=== PATIENT | female | born 1975 | race Caucasian/White ===

== ENCOUNTER 2021-06-07 06:17 | Inpatient (IN) ==
[2021-06-07] MEDS ORDERED: Clindamycin 900 MG/50 ML 900 MG/50 ML IV.SOLN IVPB ONE (06:33)
[2021-06-07] MEDS ORDERED: Ringers Solution, Lactated 1,000 ML IVC SCH (06:45)
[2021-06-07] MEDS ORDERED: *HR* FentaNYL (PF) 100 MCG/2 ML VIAL ONE ×3 (06:53→09:50)
[2021-06-07] MEDS ORDERED: Heparin 1,000 UNITS/500 mL 500 ML ONE (07:10)
[2021-06-07] MEDS ORDERED: *HR* Heparin 5,000 UNIT/ML VIAL ONE (07:10)
[2021-06-07] MEDS ORDERED: 0.9 % Sodium Chloride Mini Bag 200 ML ONE (07:10)
[2021-06-07] MEDS ORDERED: Lidocaine 1% 20 ML MDV ONE (07:11)
[2021-06-07] MEDS ORDERED: *HR* Norepinephrine 4 MG/4 ML VIAL IVC ONE (07:23)
[2021-06-07] MEDS ORDERED: *HR* Vasopressin 20 UNIT/ML VIAL ONE (07:24)
[2021-06-07] MEDS ORDERED: Lidocaine Jelly 6ml 1 APPL/6 ML JEL.PF.APP ONE (07:24)
[2021-06-07] MEDS ORDERED: Promethazine 6.25 MG in Water for inj. (sterile) 20 ML IVPB PRN (08:06)
[2021-06-07] MEDS ORDERED: *HR* OxyCODONE Immed Rel 5 MG TABLET PO PRN (08:06)
[2021-06-07] MEDS ORDERED: Acetaminophen IV 1,000 MG/100 ML BAG IVPB ONE (09:55)
[2021-06-07] MEDS: *HR* HYDROmorphone PF 0.5 MG/0.5 ML SYRINGE IVP PRN ×2 (10:13→10:30)
[2021-06-07] MEDS ORDERED: Prochlorperazine 10 MG/2 ML VIAL IVP PRN (11:55)
[2021-06-07] MEDS ORDERED: Naloxone 0.4 MG/ML INJ IVP PRN (11:55)
[2021-06-07] MEDS: 0.9 % Sodium Chloride 1,000 ML IVC SCH (13:05)
[2021-06-07] MEDS: *HR* HYDROcodone/Acet 5/325 mg TABLET PO PRN ×2 (13:05→20:18)
[2021-06-07] MEDS: Ipratropium/Albuterol Neb 3 ML IH SCH ×3 (15:42→20:36)
[2021-06-07] MEDS: Budesonide/Formoterol 160/4.5 1 PUFF INH IH SCH ×2 (15:42→20:36)
[2021-06-07] MEDS: *HR* Heparin 5,000 UNIT/ML VIAL SQ SCH ×2 (16:19→20:14)
[2021-06-07] MEDS: Gabapentin 300 MG CAPSULE PO SCH ×3 (16:19→20:14)
[2021-06-07] MEDS: Famotidine 20 MG TABLET PO SCH (20:14)
[2021-06-07] MEDS: Sennosides/Docusate Sodium TABLET PO SCH (20:14)
[2021-06-08] MEDS: Ipratropium/Albuterol Neb 3 ML IH SCH ×5 (00:42→15:44)
[2021-06-08 01:31] LABS: Hematocrit 41.2 % (35.3-44.9); Hemoglobin 12.5 g/dL (11.5-15.4); Mean Corpuscular HGB Conc 30.3 g/dL (31.6-35.5); Mean Corpuscular Hemoglobin 27.2 pg (28.0-33.3); Mean Corpuscular Volume 89.6 fL (83.0-100.0); Mean Platelet Volume 11.5 fL (9.4-12.4); Platelet Count 231 K/mcL (140-400); Red Cell Distribution Width 14.9 % (11.5-14.5); White Blood Count 14.2 K/mcL (4.3-11.1)
[2021-06-08 01:47] LABS: BUN/Creatinine Ratio 19 (6-26); Blood Urea Nitrogen 8 mg/dL (6-20); Calcium 9.8 mg/dL (8.6-10.3); Carbon Dioxide 21 mEq/L (23-29); Chloride 110 mEq/L (98-107); Glucose 124 mg/dL (70-105); Magnesium 1.8 mg/dL (1.6-2.6); Osmolality,Calculated 284 (280-300); Potassium 4.2 mEq/L (3.5-5.1); Sodium 137 mEq/L (136-145); eGFR For African Americans > 60 (> 60); eGFR For Non-African Americans > 60 (> 60)
[2021-06-08] MEDS: *HR* HYDROcodone/Acet 5/325 mg TABLET PO PRN ×3 (02:05→11:44)
[2021-06-08] MEDS: 0.9 % Sodium Chloride 1,000 ML IVC SCH (02:48)
[2021-06-08] MEDS: *HR* Heparin 5,000 UNIT/ML VIAL SQ SCH ×2 (06:32→12:00)
[2021-06-08 07:13] VITALS: BP 139/71; TEMP 98.1
[2021-06-08] MEDS: Budesonide/Formoterol 160/4.5 1 PUFF INH IH SCH (07:24)
[2021-06-08] MEDS: Famotidine 20 MG TABLET PO SCH (07:45)
[2021-06-08] MEDS: Gabapentin 300 MG CAPSULE PO SCH (07:45)
[2021-06-08] MEDS: Sennosides/Docusate Sodium TABLET PO SCH (07:47)
[2021-06-08] MEDS ORDERED: Patient Taking Own Medication 1 EACH PO SCH (09:00)
[2021-06-08] MEDS ORDERED: Fluticasone Propionate Nasal 50 MCG/SPRAY BOTTLE NS SCH (09:00)
[2021-06-08] MEDS ORDERED: Loratadine 10 MG TABLET PO SCH (09:00)
[2021-06-08 10:29] VITALS: PULSE 104
[2021-06-08 11:14] VITALS: O2SAT 94
== END 2021-06-08 15:49 | disposition home health service (06) | DRG 821 ==
LOC: SAMDAY 06:17 → 2NNU 12:59
PROVIDERS: ADMIT Thoracic Surgery (Cardiothoracic Vascular Surgery); ATTEND Thoracic Surgery (Cardiothoracic Vascular Surgery)

== ENCOUNTER 2021-06-12 05:13 | Observation (INO) ==
[2021-06-12] MEDS ORDERED: Melatonin 3 MG TABLET PO PRN (09:07)
[2021-06-12] MEDS ORDERED: Acetaminophen 325 MG TABLET PO PRN (09:07)
[2021-06-12] MEDS ORDERED: Ondansetron 4 MG/2 ML VIAL IVP PRN (09:07)
[2021-06-12] MEDS ORDERED: Naloxone 0.4 MG/ML INJ IVP PRN (09:07)
[2021-06-12 13:58] LABS: Hematocrit 38.2 % (35.3-44.9); Hemoglobin 12.2 g/dL (11.5-15.4); Mean Corpuscular HGB Conc 31.9 g/dL (31.6-35.5); Mean Corpuscular Hemoglobin 28.3 pg (28.0-33.3); Mean Corpuscular Volume 88.6 fL (83.0-100.0); Mean Platelet Volume 11.5 fL (9.4-12.4); Platelet Count 240 K/mcL (140-400); Red Blood Count 4.31 M/mcL (3.82-4.97); Red Cell Distribution Width 15.1 % (11.5-14.5); White Blood Count 10.8 K/mcL (4.3-11.1)
[2021-06-12 14:02] LABS: Adenovirus Not Detected (Not Detect); Bordetella Pertussis Not Detected (Not Detect); Chlamydophila pneumoniae Not Detected (Not Detect); Coronavirus 229E Not Detected (Not Detect); Coronavirus HKU1 Not Detected (Not Detect); Coronavirus NL63 Not Detected (Not Detect); Coronavirus OC43 Not Detected (Not Detect); Human Metapneumovirus Not Detected (Not Detect); Human Rhinovirus/Enterovirus Not Detected (Not Detect); Influenza A Subtype 2009 H1 Not Detected (Not Detect); Influenza B Not Detected (Not Detect); Mycoplasma pneumoniae Not Detected (Not Detect); Parainfluenza Virus 1 Not Detected (Not Detect); Parainfluenza Virus 2 Not Detected (Not Detect); Parainfluenza Virus 3 Not Detected (Not Detect); Parainfluenza Virus 4 Not Detected (Not Detect); Respiratory Syncytial Virus Not Detected (Not Detect); SARS-CoV-2 Not Detected (Not Detect)
[2021-06-12 14:14] LABS: BUN/Creatinine Ratio 25 (6-26); Blood Urea Nitrogen 12 mg/dL (6-20); Calcium 9.8 mg/dL (8.6-10.3); Carbon Dioxide 25 mEq/L (23-29); Chloride 106 mEq/L (98-107); Glucose 134 mg/dL (70-105); Osmolality,Calculated 284 (280-300); Potassium 4.2 mEq/L (3.5-5.1); Sodium 136 mEq/L (136-145); eGFR For African Americans > 60 (> 60); eGFR For Non-African Americans > 60 (> 60)
[2021-06-12 18:35] VITALS: BP 119/75; PULSE 88; TEMP 97.5; O2SAT 93
== END 2021-06-12 19:44 | disposition left against medical advice (07) ==
LOC: 2ANU
PROVIDERS: ADMIT Internal Medicine; ATTEND Internal Medicine

== ENCOUNTER 2021-06-28 17:24 | Inpatient (IN) ==
[2021-06-29] MEDS ORDERED: Perflutren Lipid Microsphere 1.3 ML in 0.9 % Sodium Chloride 8.7 ML IVP PRN (01:38)
[2021-06-29] MEDS ORDERED: Naloxone 0.4 MG/ML INJ IVP PRN (01:46)
[2021-06-29] MEDS ORDERED: Acetaminophen 325 MG TABLET PO PRN (01:46)
[2021-06-29 01:47] LABS: Basophils # 0.1 K/mcL (0.0-0.2); Basophils % 0.5 %; Eosinophils # 0.4 K/mcL (0.0-0.6); Eosinophils % 3.5 %; Hematocrit 39.5 % (35.3-44.9); Hemoglobin 12.4 g/dL (11.5-15.4); Immature Granulocytes % 0.3 % (0-4); Lymphocytes # 2.5 K/mcL (0.6-4.6); Lymphocytes % 23.8 %; Mean Corpuscular HGB Conc 31.4 g/dL (31.6-35.5); Mean Corpuscular Hemoglobin 27.7 pg (28.0-33.3); Mean Corpuscular Volume 88.2 fL (83.0-100.0); Mean Platelet Volume 10.6 fL (9.4-12.4); Monocytes # 0.8 K/mcL (0.0-1.3); Monocytes % 7.4 %; Neutrophils # 6.7 K/mcL (1.6-8.9); Platelet Count 259 K/mcL (140-400); Red Blood Count 4.48 M/mcL (3.82-4.97); Red Cell Distribution Width 14.9 % (11.5-14.5); Segmented Neutrophils % 64.5 %; White Blood Count 10.4 K/mcL (4.3-11.1)
[2021-06-29] MEDS ORDERED: Prochlorperazine 10 MG/2 ML VIAL IVP PRN (01:51)
[2021-06-29 02:11] LABS: Alanine Aminotransferase 23 Units/L (7-52); Albumin 3.5 g/dL (3.5-5.7); Albumin/Globulin Ratio 1.4 (1.1-2.2); Alkaline Phosphatase 105 Units/L (34-104); Aspartate Amino Transferase 16 Units/L (13-39); BUN/Creatinine Ratio 14 (6-26); Bilirubin,Total 0.5 mg/dL (0.3-1.0); Blood Urea Nitrogen 7 mg/dL (6-20); Calcium 10.1 mg/dL (8.6-10.3); Carbon Dioxide 24 mEq/L (23-29); Chloride 109 mEq/L (98-107); Chol/HDL Ratio 4.6 (0-4.9); Cholesterol 142 mg/dL (< 200); Globulin 2.5 g/dL (2.4-3.5); Glucose 92 mg/dL (70-105); HDL Cholesterol 31 mg/dL (40-59); Iron 30 mcg/dL (50-170); LDL Cholesterol,Calculated 87 mg/dL (< 100); Magnesium 1.9 mg/dL (1.6-2.6); Osmolality,Calculated 284 (280-300); Potassium 3.9 mEq/L (3.5-5.1); Sodium 138 mEq/L (136-145); Triglycerides 120 mg/dL (< 150); eGFR For African Americans > 60 (> 60); eGFR For Non-African Americans > 60 (> 60)
[2021-06-29 02:20] LABS: Thyroid Stimulating Hormone 0.438 mcIU/mL (0.340-5.600)
[2021-06-29 02:25] LABS: Ferritin 16 ng/mL (10-120)
[2021-06-29] MEDS ORDERED: Nitroglycerin 0.4 MG TAB.SUBL SL PRN (02:54)
[2021-06-29] MEDS: *HR* HYDROmorphone 2 MG TABLET PO PRN ×3 (02:57→21:16)
[2021-06-29] MEDS ORDERED: Albuterol 2.5 MG/3 ML NEBULIZER IH PRN (03:19)
[2021-06-29] MEDS ORDERED: NON-FORMULARY MEDICATION 1 EACH EACH (Albuterol Sulfate 8.5 GM Hfa.Aer.Ad) IH PRN (03:19)
[2021-06-29] MEDS: Levalbuterol Neb 1.25 MG/3 ML IH SCH ×7 (03:26→23:08)
[2021-06-29 03:29] LABS: Folate > 22.3 ng/mL (3.0-16.0); Vitamin D 25 Hydroxy 13 ng/mL (30-80)
[2021-06-29] MEDS: *HR* Heparin 5,000 UNIT/ML VIAL SQ SCH ×3 (05:39→21:16)
[2021-06-29] MEDS: *HR* HYDROcodone/Acet 5/325 mg TABLET PO PRN ×2 (06:11→16:49)
[2021-06-29] MEDS: Budesonide/Formoterol 160/4.5 1 PUFF INH IH SCH ×2 (07:51→20:02)
[2021-06-29 09:07] LABS: Estimated Average Glucose 117 mg/dl; Hemoglobin A1C 5.7 %
[2021-06-29] MEDS: Doxycycline 100 MG in 0.9 % Sodium Chloride Mini Bag 100 ML IVPB SCH ×2 (09:19→16:50)
[2021-06-29] MEDS: Loratadine 10 MG TABLET PO SCH (09:20)
[2021-06-29] MEDS: Fluticasone Propionate Nasal 50 MCG/SPRAY BOTTLE NS SCH (09:21)
[2021-06-29] MEDS ORDERED: VILAZODONE HCL 10 MG PO SCH (21:00)
[2021-06-29] MEDS: (Vilazodone Hcl [Viibryd] 20 MG Tablet) PO SCH (21:18)
[2021-06-30] MEDS: Levalbuterol Neb 1.25 MG/3 ML IH SCH ×6 (03:14→23:15)
[2021-06-30] MEDS: *HR* HYDROcodone/Acet 5/325 mg TABLET PO PRN ×3 (05:12→20:33)
[2021-06-30] MEDS: Doxycycline 100 MG in 0.9 % Sodium Chloride Mini Bag 100 ML IVPB SCH ×2 (05:13→17:18)
[2021-06-30] MEDS: *HR* Heparin 5,000 UNIT/ML VIAL SQ SCH ×3 (05:13→20:34)
[2021-06-30] MEDS: Budesonide/Formoterol 160/4.5 1 PUFF INH IH SCH ×2 (07:40→19:24)
[2021-06-30] MEDS: Fluticasone Propionate Nasal 50 MCG/SPRAY BOTTLE NS SCH (08:55)
[2021-06-30] MEDS: Loratadine 10 MG TABLET PO SCH (08:59)
[2021-06-30] MEDS: Nystatin POWDER 30 GM BOTTLE TP SCH ×2 (10:45→20:34)
[2021-06-30] MEDS ORDERED: *HR* HYDROmorphone 2 MG/ML SYRINGE IVP ONE (13:38)
[2021-06-30] MEDS ORDERED: Gadolinium Contrast Agent (WT Based) IV PRN (14:17)
[2021-06-30] MEDS: *HR* HYDROmorphone (PF) 1 MG/ML SYRINGE IVP PRN ×2 (18:29→22:36)
[2021-06-30] MEDS: (Vilazodone Hcl [Viibryd] 20 MG Tablet) PO SCH (20:31)
[2021-07-01] MEDS: *HR* HYDROmorphone (PF) 1 MG/ML SYRINGE IVP PRN ×4 (02:33→19:07)
[2021-07-01] MEDS: Levalbuterol Neb 1.25 MG/3 ML IH SCH ×6 (03:26→23:12)
[2021-07-01] MEDS: *HR* HYDROcodone/Acet 5/325 mg TABLET PO PRN ×3 (04:56→21:08)
[2021-07-01] MEDS: *HR* Heparin 5,000 UNIT/ML VIAL SQ SCH ×3 (04:56→21:08)
[2021-07-01] MEDS: Doxycycline 100 MG in 0.9 % Sodium Chloride Mini Bag 100 ML IVPB SCH ×2 (04:56→17:48)
[2021-07-01] MEDS: Regadenoson 0.4 MG/5 ML SYRINGE IVP ONE (07:20)
[2021-07-01] MEDS: Budesonide/Formoterol 160/4.5 1 PUFF INH IH SCH ×2 (07:40→19:50)
[2021-07-01] MEDS: Nystatin POWDER 30 GM BOTTLE TP SCH ×2 (08:12→21:09)
[2021-07-01] MEDS: Loratadine 10 MG TABLET PO SCH (08:59)
[2021-07-01] MEDS: Fluticasone Propionate Nasal 50 MCG/SPRAY BOTTLE NS SCH (08:59)
[2021-07-01 16:36] LABS: Basophils % 0.3 %; Eosinophils # 0.3 K/mcL (0.0-0.6); Eosinophils % 3.3 %; Hematocrit 39.2 % (35.3-44.9); Hemoglobin 12.5 g/dL (11.5-15.4); Immature Granulocytes % 0.3 % (0-4); Lymphocytes % 20.7 %; Mean Corpuscular HGB Conc 31.9 g/dL (31.6-35.5); Mean Corpuscular Volume 87.7 fL (83.0-100.0); Mean Platelet Volume 10.6 fL (9.4-12.4); Monocytes # 0.8 K/mcL (0.0-1.3); Monocytes % 8.6 %; Neutrophils # 6.4 K/mcL (1.6-8.9); Platelet Count 248 K/mcL (140-400); Red Blood Count 4.47 M/mcL (3.82-4.97); Red Cell Distribution Width 14.6 % (11.5-14.5); Segmented Neutrophils % 66.8 %; White Blood Count 9.6 K/mcL (4.3-11.1)
[2021-07-01 16:56] LABS: Blood Urea Nitrogen 9 mg/dL (6-20); Calcium 10.4 mg/dL (8.6-10.3); Carbon Dioxide 27 mEq/L (23-29); Chloride 110 mEq/L (98-107); Glucose 88 mg/dL (70-105); Osmolality,Calculated 270 (280-300); Potassium 4.2 mEq/L (3.5-5.1); Sodium 131 mEq/L (136-145)
[2021-07-01 17:08] LABS: BUN/Creatinine Ratio 16 (6-26); eGFR For African Americans > 60 (> 60); eGFR For Non-African Americans > 60 (> 60)
[2021-07-01] MEDS: (Vilazodone Hcl [Viibryd] 20 MG Tablet) PO SCH (21:09)
[2021-07-02] MEDS: *HR* HYDROmorphone (PF) 1 MG/ML SYRINGE IVP PRN ×4 (00:36→23:08)
[2021-07-02] MEDS: Levalbuterol Neb 1.25 MG/3 ML IH SCH ×7 (03:14→23:20)
[2021-07-02] MEDS: *HR* HYDROcodone/Acet 5/325 mg TABLET PO PRN ×2 (03:20→18:46)
[2021-07-02] MEDS: *HR* Heparin 5,000 UNIT/ML VIAL SQ SCH ×3 (05:38→20:34)
[2021-07-02] MEDS: Doxycycline 100 MG in 0.9 % Sodium Chloride Mini Bag 100 ML IVPB SCH ×2 (05:45→18:37)
[2021-07-02] MEDS ORDERED: Regadenoson 0.4 MG/5 ML SYRINGE IVP ONE (06:26)
[2021-07-02] MEDS: Budesonide/Formoterol 160/4.5 1 PUFF INH IH SCH ×2 (07:43→19:44)
[2021-07-02] MEDS: Nystatin POWDER 30 GM BOTTLE TP SCH ×2 (08:28→20:57)
[2021-07-02] MEDS: Loratadine 10 MG TABLET PO SCH (08:28)
[2021-07-02] MEDS ORDERED: *HR* LORazepam 2 MG/ML VIAL IVP ONE (09:08)
[2021-07-02] MEDS: Fluticasone Propionate Nasal 50 MCG/SPRAY BOTTLE NS SCH (09:17)
[2021-07-02] MEDS ORDERED: Gadolinium Contrast Agent (WT Based) IV PRN (17:54)
[2021-07-02] MEDS: (Vilazodone Hcl [Viibryd] 20 MG Tablet) PO SCH (20:35)
[2021-07-02] MEDS: Vilazodone Hcl [Viibryd] 10 MG Tablet PO SCH (20:35)
[2021-07-03] MEDS: *HR* HYDROcodone/Acet 5/325 mg TABLET PO PRN ×2 (03:53→20:43)
[2021-07-03] MEDS: Levalbuterol Neb 1.25 MG/3 ML IH SCH ×5 (04:11→20:23)
[2021-07-03] MEDS: *HR* Heparin 5,000 UNIT/ML VIAL SQ SCH ×3 (05:59→22:49)
[2021-07-03] MEDS: Doxycycline 100 MG in 0.9 % Sodium Chloride Mini Bag 100 ML IVPB SCH ×2 (06:01→17:47)
[2021-07-03] MEDS ORDERED: Regadenoson 0.4 MG/5 ML SYRINGE IVP ONE (07:00)
[2021-07-03] MEDS: Budesonide/Formoterol 160/4.5 1 PUFF INH IH SCH ×2 (08:06→20:23)
[2021-07-03 08:41] LABS: Basophils % 0.3 %; Eosinophils # 0.3 K/mcL (0.0-0.6); Eosinophils % 3.1 %; Hematocrit 38.3 % (35.3-44.9); Immature Granulocytes % 0.3 % (0-4); Lymphocytes # 1.9 K/mcL (0.6-4.6); Lymphocytes % 17.8 %; Mean Corpuscular HGB Conc 31.3 g/dL (31.6-35.5); Mean Corpuscular Hemoglobin 27.7 pg (28.0-33.3); Mean Corpuscular Volume 88.5 fL (83.0-100.0); Mean Platelet Volume 10.9 fL (9.4-12.4); Monocytes % 9.4 %; Neutrophils # 7.2 K/mcL (1.6-8.9); Platelet Count 247 K/mcL (140-400); Red Blood Count 4.33 M/mcL (3.82-4.97); Red Cell Distribution Width 14.9 % (11.5-14.5); Segmented Neutrophils % 69.1 %; White Blood Count 10.4 K/mcL (4.3-11.1)
[2021-07-03] MEDS: Fluticasone Propionate Nasal 50 MCG/SPRAY BOTTLE NS SCH (08:55)
[2021-07-03] MEDS: Loratadine 10 MG TABLET PO SCH (08:55)
[2021-07-03] MEDS: Nystatin POWDER 30 GM BOTTLE TP SCH ×2 (08:56→20:48)
[2021-07-03 09:00] LABS: BUN/Creatinine Ratio 25 (6-26); Blood Urea Nitrogen 11 mg/dL (6-20); Calcium 10.1 mg/dL (8.6-10.3); Carbon Dioxide 22 mEq/L (23-29); Chloride 110 mEq/L (98-107); Glucose 101 mg/dL (70-105); Osmolality,Calculated 284 (280-300); Potassium 4.2 mEq/L (3.5-5.1); Sodium 137 mEq/L (136-145); eGFR For African Americans > 60 (> 60); eGFR For Non-African Americans > 60 (> 60)
[2021-07-03] MEDS: *HR* HYDROmorphone (PF) 1 MG/ML SYRINGE IVP PRN ×3 (09:23→22:50)
[2021-07-03] MEDS: Regadenoson 0.4 MG/5 ML SYRINGE IVP ONE (09:51)
[2021-07-03 11:00] LABS: % Iron Saturation 10 % (15-50); Transferrin 224 mg/dL (200-400)
[2021-07-03] MEDS ORDERED: *HR* Promethazine 25 MG/ML VIAL IM ONE (19:48)
[2021-07-03] MEDS: Vilazodone Hcl [Viibryd] 10 MG Tablet PO SCH (20:47)
[2021-07-03] MEDS: (Vilazodone Hcl [Viibryd] 20 MG Tablet) PO SCH (20:47)
[2021-07-03] MEDS: Nystatin Cream 15 GM TUBE TP SCH (22:50)
[2021-07-04] MEDS: Levalbuterol Neb 1.25 MG/3 ML IH SCH ×6 (00:13→19:54)
[2021-07-04] MEDS: *HR* HYDROcodone/Acet 5/325 mg TABLET PO PRN ×3 (02:44→22:45)
[2021-07-04] MEDS: *HR* Heparin 5,000 UNIT/ML VIAL SQ SCH ×3 (05:15→22:31)
[2021-07-04] MEDS: *HR* HYDROmorphone (PF) 1 MG/ML SYRINGE IVP PRN ×3 (05:16→18:40)
[2021-07-04] MEDS: Doxycycline 100 MG in 0.9 % Sodium Chloride Mini Bag 100 ML IVPB SCH ×2 (05:18→15:50)
[2021-07-04] MEDS: Budesonide/Formoterol 160/4.5 1 PUFF INH IH SCH ×2 (07:34→19:54)
[2021-07-04] MEDS: Loratadine 10 MG TABLET PO SCH (09:02)
[2021-07-04] MEDS: Fluticasone Propionate Nasal 50 MCG/SPRAY BOTTLE NS SCH (09:04)
[2021-07-04] MEDS: Nystatin Cream 15 GM TUBE TP SCH ×2 (09:04→20:11)
[2021-07-04] MEDS: Nystatin POWDER 30 GM BOTTLE TP SCH ×2 (09:04→20:11)
[2021-07-04] MEDS: (Vilazodone Hcl [Viibryd] 20 MG Tablet) PO SCH (20:09)
[2021-07-04] MEDS: Vilazodone Hcl [Viibryd] 10 MG Tablet PO SCH (20:09)
[2021-07-04 21:42] LABS: Vitamin B12 280 pg/mL (250-1100)
[2021-07-05] MEDS: Levalbuterol Neb 1.25 MG/3 ML IH SCH ×7 (00:22→23:42)
[2021-07-05] MEDS: *HR* HYDROmorphone (PF) 1 MG/ML SYRINGE IVP PRN ×3 (02:20→17:08)
[2021-07-05] MEDS: *HR* Heparin 5,000 UNIT/ML VIAL SQ SCH ×3 (05:19→20:52)
[2021-07-05] MEDS: Doxycycline 100 MG in 0.9 % Sodium Chloride Mini Bag 100 ML IVPB SCH ×2 (05:20→17:08)
[2021-07-05] MEDS: *HR* HYDROcodone/Acet 5/325 mg TABLET PO PRN ×3 (05:26→21:00)
[2021-07-05] MEDS: Budesonide/Formoterol 160/4.5 1 PUFF INH IH SCH ×2 (07:34→20:13)
[2021-07-05] MEDS: Fluticasone Propionate Nasal 50 MCG/SPRAY BOTTLE NS SCH (08:51)
[2021-07-05] MEDS: Loratadine 10 MG TABLET PO SCH (09:15)
[2021-07-05] MEDS: Nystatin Cream 15 GM TUBE TP SCH ×2 (09:25→20:51)
[2021-07-05] MEDS: Nystatin POWDER 30 GM BOTTLE TP SCH ×2 (09:25→20:51)
[2021-07-05] MEDS ORDERED: Cyanocobalamin (B-12) 1,000 MCG/ML VIAL IM ONE (14:06)
[2021-07-05] MEDS: (Vilazodone Hcl [Viibryd] 20 MG Tablet) PO SCH (20:52)
[2021-07-05] MEDS: Vilazodone Hcl [Viibryd] 10 MG Tablet PO SCH (20:52)
[2021-07-06] MEDS: *HR* HYDROmorphone (PF) 1 MG/ML SYRINGE IVP PRN ×2 (01:22→08:34)
[2021-07-06] MEDS: Levalbuterol Neb 1.25 MG/3 ML IH SCH ×3 (03:58→11:31)
[2021-07-06] MEDS: *HR* HYDROcodone/Acet 5/325 mg TABLET PO PRN ×2 (04:38→13:02)
[2021-07-06] MEDS ORDERED: *HR* LORazepam 2 MG/ML VIAL IVP ONE ×2 (05:16→05:23)
[2021-07-06] MEDS ORDERED: *HR* Promethazine 25 MG/ML VIAL IM ONE (05:24)
[2021-07-06] MEDS: *HR* Heparin 5,000 UNIT/ML VIAL SQ SCH (05:35)
[2021-07-06] MEDS: Doxycycline 100 MG in 0.9 % Sodium Chloride Mini Bag 100 ML IVPB SCH (05:35)
[2021-07-06] MEDS: Budesonide/Formoterol 160/4.5 1 PUFF INH IH SCH (07:38)
[2021-07-06] MEDS: Loratadine 10 MG TABLET PO SCH (08:33)
[2021-07-06] MEDS: Fluticasone Propionate Nasal 50 MCG/SPRAY BOTTLE NS SCH (11:26)
[2021-07-06] MEDS: Nystatin POWDER 30 GM BOTTLE TP SCH (11:26)
[2021-07-06 11:43] VITALS: BP 131/81; PULSE 78; TEMP 97.6; O2SAT 96
[2021-07-06] MEDS: Nystatin Cream 15 GM TUBE TP SCH (12:52)
== END 2021-07-06 16:25 | disposition home or self-care (01) | DRG 863 ==
LOC: 3BNU → SUATTDRO 19:40
PROVIDERS: ADMIT Family Medicine; ATTEND Hospitalist